=== PATIENT | male | born 1970 | race African-American/Black ===

== ENCOUNTER 2016-07-09 20:11 | Emergency (ER) | payer OTHER ==
--- NOTE | 2016-07-09 20:27 | UC ---
Cardiac HPI - HPI Summary HPI Summary: 46 yo M presents with mid sternal chest pain, fluttering in his chest, intermittent x 2 weeks, max duration 45 seconds. Past 2 days with numbness of his fingers and toes that comes and goes, mostly on the left. Fluttering in his chest feels like gas. Pt was unaware that his BP was so elevated, but has been told he has HTN in the past. Is on no meds. Has never seen a retort engineer. Never had a stress test. +smoker, + fam hx-mother with multiple MS's, her first one at age 45. - History of Current Complaint Stated Complaint: LIGHTHEADED,FLUTTERING IN CHEST,L SIDE NUMB Time Seen by Provider: 07/09/16 20:26 Hx Obtained From: Patient Onset/Duration: Gradual Onset, Lasting Days, Still Present Timing: Intermittent Episodes Lasting: - 45 seconds Initial Severity: Moderate Current Severity: Moderate Pain Intensity: 4 Chest Pain Location: Mid Sternal Character: Fluttering, Pressure/Squeezing Aggravating: Nothing Alleviating: Spontaneous Resolution Associated Signs & Symptoms: Positive: Chest Pain, Numbness, Tingling, Weakness , Dizziness, Nausea/Vomiting - Risk Factors Pulmonary Embolism Risk Factors: Negative Cardiac Risk Factors: Hypertension, Smoking, Family History Atrial Fibrillation: Hypertension TAD Risk Factors: Smoking AMI/ACS Risk Factors: Hypertension, Smoking - Allergy/Home Medications Allergies/Adverse Reactions: Allergies Allergy/AdvReac Type Severity Reaction Status Date / Time citrus,tropical fruits, AdvReac Vomiting Uncoded 07/09/16 20:34 coconut peanuts AdvReac Constipatio Uncoded 07/09/16 20:34 n PMH/Surg Hx/FS Hx/Imm Hx Cardiovascular History Of: Reports: Hypertension - Surgical History Surgical History: Yes Surgery Procedure, Year, and Place: dental, jaw fx, 2 pins left hip - Family History Known Family History: Positive: Cardiac Disease, Hypertension - Social History Lives: With Family Alcohol Use: Rare Substance Use Type: None Smoking Status (MU): Heavy Every Day Tobacco Smoker Amount Used/How Often: 1/2 ppd Length of Time of Smoking/Using Tobacco: 29 years Household Exposure Type: Cigarettes Review of Systems Constitutional: Fatigue Cardiovascular: Chest Pain Gastrointestinal: Other - nausea All Other Systems Reviewed And Are Negative: Yes Physical Exam Triage Information Reviewed: Yes Appearance: Ill-Appearing Vital Signs: elevated BP noted Vital Signs Reviewed: Yes Eyes: Positive: Conjunctiva Clear ENT: Positive: Normal ENT inspection Neck: Positive: Supple Respiratory: Positive: Lungs clear, Normal breath sounds, No respiratory distress, No accessory muscle use Cardiovascular: Positive: RRR, No Murmur, Pulses Normal, Brisk Capillary Refill Musculoskeletal: Positive: Strength Intact, ROM Intact Neurological: Positive: Alert, Muscle Tone Normal, Other: - nonfocal Psychological Exam: Normal Psychological: Positive: Decreased Age Appropriate Behavior - Differential Diagnoses - Chest Pain Differential Diagnosis/HQI/PQRI: Acute MS, ACS, Angina, GI Disease, Pulmonary Embolism - Clinical Impression Provider Diagnoses: chest pain. hypertensive urgency - Physician Notifications Time Discussed With Above Provider: 21:20 - TBOI Cancino Instructed by Provider To: MD Will See In ED Discharge - Discharge Plan Condition: Stable Disposition: HOME Discharge Disposition Comment: pt signs AMA for ambulance, goes by private car to [facility]
[2016-07-09 21:10] VITALS: BP 175/120
== END 2016-07-09 21:07 | disposition home or self-care (01) ==
LOC: UCCORT 20:11
DX: R07.2 Precordial pain (principal); I16.0 Hypertensive urgency; I10 Essential (primary) hypertension; F17.210 Nicotine dependence, cigarettes, uncomplicated
CPT/HCPCS: 93005; 99213; G0463

== ENCOUNTER 2022-05-12 21:40 | Inpatient (IN) ==
[2022-05-12 22:20] LABS: ABS Basophils 0.1 10^3/ul (0-0.2); ABS Eosinophils 0.1 10^3/ul (0-0.6); ABS Lymphocytes 2.1 10^3/ul (1.0-4.8); ABS Monocytes 0.6 10^3/ul (0-0.8); ABS Neutrophils 15.3 10^3/ul (1.5-7.7); Eosinophil % 0.5 %; Hematocrit 48 % (42-52); Hemoglobin 15.9 g/dL (14.0-18.0); Lymphocyte % 11.7 %; Mean Corpuscular HGB Conc 33 g/dL (31-36); Mean Corpuscular Hemoglobin 31 pg (27-31); Mean Corpuscular Volume 92 fL (80-94); Mean Platelet Volume 10.1 fL (7.4-10.4); Platelet Count 126 10^3/uL (150-450); Red Blood Count 5.16 10^6 /uL (4.18-5.48); Red Cell Distribution Width 15 % (10-15); White Blood Count 18.3 10^3/uL (3.5-10.8)
[2022-05-12 22:37] LABS: INR 1.13 (0.88-1.18)
[2022-05-12 22:47] LABS: Albumin 3.7 g/dL (3.2-5.2); Albumin/Globulin Ratio 1.1 (1-3); Calcium 8.5 mg/dL (8.6-10.3); Creatinine, Serum 1.05 mg/dL (0.67-1.17); Globulin 3.3 g/dL (2-4); Magnesium 1.9 mg/dL (1.9-2.7); Potassium 3.5 mmol/L (3.5-5.0); Total Bilirubin 0.7 mg/dL (0.2-1.0); eGFR CKD-EPI 85.9 (>60)
[2022-05-12 23:22] LABS: High Sensitivity Troponin 1 Hr 675 pg/mL (<20)
[2022-05-12] MEDS ORDERED: Iodixanol (CONTRAST) 320 MG/ML 100 ML SDV IV ONE (23:30)
[2022-05-13] MEDS ORDERED: Heparin DRIP 25,000 UNITS BAG 25,000 UNITS/500 ML BAG IV SCH (00:15)
[2022-05-13 00:38] LABS: Activated Partial Thrombo Time 25.1 seconds (26.0-38.0)
[2022-05-13] MEDS ORDERED: Heparin 5000 UNITS/ML 1 mL VIAL IV SCH (01:00)
[2022-05-13] MEDS ORDERED: Acetaminophen IV 1 GM/100ML 1,000 MG/100 ML BAG IV PRN (01:17)
[2022-05-13] MEDS ORDERED: Dextrose 50% Syringe 50 ml 25 GM/50 ML SYRINGE IV PUSH PRN (01:26)
[2022-05-13] MEDS: Heparin DRIP 25,000 UNITS BAG 25,000 UNITS/500 ML BAG IV SCH ×2 (02:02→15:02)
[2022-05-13] MEDS: KCL 20 MEQ/100 ML IVPREMIX 20 MEQ/100 ML BAG IV SCH ×2 (03:46→06:51)
[2022-05-13 03:56] LABS: ABS Basophils 0.1 10^3/ul (0-0.2); ABS Eosinophils 0.1 10^3/ul (0-0.6); ABS Lymphocytes 4.5 10^3/ul (1.0-4.8); ABS Monocytes 0.7 10^3/ul (0-0.8); ABS Neutrophils 11.5 10^3/ul (1.5-7.7); Eosinophil % 0.6 %; Hematocrit 46 % (42-52); Hemoglobin 15.2 g/dL (14.0-18.0); Lymphocyte % 26.7 %; Mean Corpuscular HGB Conc 33 g/dL (31-36); Mean Corpuscular Hemoglobin 31 pg (27-31); Mean Corpuscular Volume 92 fL (80-94); Mean Platelet Volume 10.6 fL (7.4-10.4); Platelet Count 132 10^3/uL (150-450); Red Blood Count 4.95 10^6 /uL (4.18-5.48); Red Cell Distribution Width 15 % (10-15); White Blood Count 16.9 10^3/uL (3.5-10.8)
[2022-05-13 04:00] LABS: INR 1.22 (0.88-1.18)
[2022-05-13 04:25] LABS: Calcium 8.6 mg/dL (8.6-10.3); Creatinine, Serum 0.94 mg/dL (0.67-1.17); Potassium 3.3 mmol/L (3.5-5.0); eGFR CKD-EPI 98.1 (>60)
[2022-05-13 06:55] LABS: Urine Appearance Clear; Urine Bilirubin Negative (Negative); Urine Blood Negative (Negative); Urine Color Yellow; Urine Glucose Negative (Negative); Urine Ketones Negative (Negative); Urine Nitrite Negative (Negative); Urine Protein Negative (Negative); Urine Specific Gravity 1.018 (1.002-1.030); Urine Urobilinogen Negative (Negative)
[2022-05-13 12:31] LABS: PSA Screening Total 0.176 ng/mL (0-4.000)
[2022-05-14] MEDS: Heparin DRIP 25,000 UNITS BAG 25,000 UNITS/500 ML BAG IV SCH ×2 (04:13→17:51)
[2022-05-14 07:02] LABS: ABS Basophils 0.1 10^3/ul (0-0.2); ABS Eosinophils 0.3 10^3/ul (0-0.6); ABS Lymphocytes 4.7 10^3/ul (1.0-4.8); ABS Monocytes 0.7 10^3/ul (0-0.8); ABS Neutrophils 8.6 10^3/ul (1.5-7.7); Eosinophil % 2.4 %; Hematocrit 43 % (42-52); Hemoglobin 14.4 g/dL (14.0-18.0); Lymphocyte % 32.6 %; Mean Corpuscular HGB Conc 33 g/dL (31-36); Mean Corpuscular Hemoglobin 31 pg (27-31); Mean Corpuscular Volume 93 fL (80-94); Mean Platelet Volume 11.1 fL (7.4-10.4); Nucleated Red Blood Cells % 0.1; Platelet Count 118 10^3/uL (150-450); Red Blood Count 4.68 10^6 /uL (4.18-5.48); Red Cell Distribution Width 15 % (10-15); White Blood Count 14.3 10^3/uL (3.5-10.8)
[2022-05-14 07:23] LABS: Calcium 8.4 mg/dL (8.6-10.3); Creatinine, Serum 1.05 mg/dL (0.67-1.17); Potassium 3.3 mmol/L (3.5-5.0); eGFR CKD-EPI 85.9 (>60)
[2022-05-14] MEDS ORDERED: Potassium Chlor 20 meq TAB.ER PO ONE ×2 (07:46→13:00)
[2022-05-14] MEDS: Lidocaine PATCH 5% PATCH TRANSDERM SCH (17:51)
[2022-05-14 18:32] LABS: High Sensitivity Troponin 1 Hr 194 pg/mL (<20)
[2022-05-15 05:53] LABS: ABS Basophils 0.1 10^3/ul (0-0.2); ABS Eosinophils 0.3 10^3/ul (0-0.6); ABS Lymphocytes 4.2 10^3/ul (1.0-4.8); ABS Monocytes 0.5 10^3/ul (0-0.8); ABS Neutrophils 6.7 10^3/ul (1.5-7.7); Eosinophil % 2.3 %; Hematocrit 44 % (42-52); Hemoglobin 14.6 g/dL (14.0-18.0); Lymphocyte % 35.7 %; Mean Corpuscular HGB Conc 34 g/dL (31-36); Mean Corpuscular Hemoglobin 31 pg (27-31); Mean Corpuscular Volume 93 fL (80-94); Mean Platelet Volume 11.2 fL (7.4-10.4); Nucleated Red Blood Cells % 0.1; Platelet Count 126 10^3/uL (150-450); Red Blood Count 4.71 10^6 /uL (4.18-5.48); Red Cell Distribution Width 15 % (10-15); White Blood Count 11.7 10^3/uL (3.5-10.8)
[2022-05-15 06:14] LABS: Calcium 8.8 mg/dL (8.6-10.3); Creatinine, Serum 0.99 mg/dL (0.67-1.17); Potassium 3.3 mmol/L (3.5-5.0); eGFR CKD-EPI 92.2 (>60)
[2022-05-15] MEDS: Heparin DRIP 25,000 UNITS BAG 25,000 UNITS/500 ML BAG IV SCH (07:26)
[2022-05-15] MEDS: Lidocaine PATCH 5% PATCH TRANSDERM SCH (07:38)
[2022-05-15 07:49] LABS: Magnesium 2.1 mg/dL (1.9-2.7)
[2022-05-15] MEDS ORDERED: Potassium Chlor 20 meq TAB.ER PO SCH (09:00)
[2022-05-15] MEDS ORDERED: Potassium Chlor 20 meq TAB.ER PO ONE (13:00)
[2022-05-15] MEDS ORDERED: Lidocaine PATCH 5% PATCH TRANSDERM SCH (16:00)
[2022-05-15 16:51] VITALS: BP 142/99
[2022-05-16 15:13] LABS: Beta 2 Glycoprotein IgG <9.4 U/mL
[2022-05-16 17:10] LABS: Phospholipid Ab IgG 11.4 GPL; Phospholipid Ab IgM, S < 9.4 MPL
[2022-05-16 17:17] LABS: Phospholipid (Cardiolipin) IgA < 9.4 APL
== END 2022-05-15 17:40 | disposition home or self-care (01) | DRG 134 ==
LOC: ED 21:40 → SUATTDRO 05-13 01:12 → EDHOLD 05-13 01:12 → ICU 05-13 02:07 → MEDTELE 05-13 22:09
PROVIDERS: ADMIT Internal Medicine; ATTEND Family Medicine